=== PATIENT | female | born 2000 | race Caucasian/White ===

== ENCOUNTER 2022-10-21 00:41 | Day surgery (SDC) | payer SELFPAY ==
--- NOTE | 2022-10-14 13:13 | PC.NURSE ---
Report to the Outpatient Waiting Room, entrance under the green pavilion located off [facility], at time _0630_ on date _10/21/22__. Planned Procedure Time: _0830_. Time changes happen often and if your time is changed the preop area will call you the afternoon before. - You and your visitor will be asked to self-screen and do not enter if you have any COVID symptoms. - A mask is optional within the hospital at this time. Patients may have clear liquids (water, carbonated beverages, clear teas, apple juice) until 3 hours prior to surgery with a maximum of 20 ounces. - No food from midnight until time of surgery - Infants may have breast milk until 4 hours before surgery, infant formula 6 hours prior to surgery. - Children will be allowed to drink immediately following surgery. If applicable, please bring a bottle or sippy cup to assist with drinking. Juice, water, soda, and popsicles are readily available. For infants on formula, please bring formula the day of surgery. Pacifiers are allowed. Take the following medications with a SIP of water the morning of surgery: ____none__ DO NOT STOP ANY OF YOUR OTHER PRESCRIPTION MEDICATIONS PRIOR TO SURGERY ?EXCEPT THE FOLLOWING Medications to discontinue per physician __vitamins or supplement 3 days prior__ Date to take last dose Please no make-up, nail zimbabwean, hairspray, perfume, deodorant, or body powder the day of surgery. No jewelry (including any body piercings) or valuables the day of surgery, leave them at home. Please take a shower or bath the night before, or the morning of, surgery with an antibacterial soap. Wear comfortable, loose fitting clothing. Children are encouraged to wear pajamas. - Jewelry must be removed prior to entering the operating room. Rings and piercings that are not removed may be cut off. - The hospital will not accept responsibility for valuables. - Please leave all valuables, including medications, at home the day of surgery. If you are going home after surgery, a licensed oil transport driver must drive you home. - NO public transportation without another adult if you receive anesthesia. - We recommend that an adult stay with you for 24 hours following discharge. - We also recommend that you do not drive, make important decision, drink alcoholic beverages, or take any drugs that were not prescribed by your health care provider for at least 24 hours after your discharge time. For Pediatric surgeries, we recommend two adults accompany the child home. Follow any additional instructions given to you from your surgeon. If you or anyone in your household have experienced Covid symptoms in the past week, please notify your surgeon or the nurse liaison at the phone number below for possible testing. Telephone instructions given to _Patient__and asked if any additional questions and then verbalized understanding. Patient advised to call surgeon office or pre surgery nurse liaison [phone] if any additional questions.
[2022-10-14 13:19] VITALS: BMI 20.5
--- NOTE | 2022-10-20 19:04 | PM.IMHP ---
H&P: HPI History of Present Illness Date/Time: 10/20/22 19:04 Chief Complaint: IUD removal Narrative: Estela is a 22yo G0, who presents for Mirena IUD removal. It has been in place since 09/2020 but did not follow up for IUD string check. She has been having cramping and spotting on and off. She would like to be switched to the patch. She presented in office for removal but the strings were not visualized. She did not want to attempt in office removal as the insertion was very painful. Review of Systems Constitutional: Constitutional: Denies chills, Denies fever(s) and Denies headache(s) Eyes: Eyes: Denies change in vision ENT: Denies dizziness and Denies headache(s) Cardiovascular: Cardiovascular: Denies chest pain and Denies dyspnea Respiratory: Respiratory: Denies cough and Denies dyspnea Gastrointestinal: Gastrointestinal: Denies abdominal pain and Denies change in stool character Genitourinary: Genitourinary: Denies abnormal menses, Denies pelvic pain, Denies vaginal discharge, Denies vaginal odor and Denies vaginal pruritus Neurologic: Denies dizziness and Denies headache(s) Psychiatric: Psychiatric: Denies anxiety and Denies depression PMF Past Medical History Medical History (Updated 09/05/22 @ 10:20 by Xi Juarez MD) Acute anxiety Anorexia Depression Encounter for insertion of mirena IUD insertion - 10/04/2020 Epileptic seizures Ganglion cyst of dorsum of right wrist removed 2011 Surgical History Surgical History H/O endoscopy Family History Family History (Updated 09/04/22 @ 11:59 by Verenice Seals MA) Grandparent Heart disease Hypertension Social History Social History (Updated 09/05/22 @ 09:54 by Verenice Seals MA) Smoking status: Current every day smoker Tobacco type: e-cigarettes/vaping Alcohol intake: never Substance use: never Substance use type: does not use Living arrangements: alone Occupation/Education: occupation Gender identity (if verbalized by the patient): Other Sexual Orientation (if Verbalized by the Patient): Bisexual Spiritual care concerns: No Meds Home Medications and Allergies Home Medications Medication Instructions Recorded Confirmed Type escitalopram oxalate 5 mg tablet 15 mg PO DAILY 09/05/22 10/14/22 History (Lexapro) Allergies Allergy/AdvReac Type Severity Reaction Status Date / Time No Known Allergies Allergy Verified 10/14/22 13:03 Exam Const: General: cooperative, healthy appearing, comfortable and no acute distress Orientation/consciousness: patient oriented x3 Resp: Effort & Inspection: normal respiratory effort Cardio: Rate: regular rate GI: Inspection: normal to inspection GI Palp: No abdominal tenderness and Yes Soft to palpation : Other: deferred to OR Skin: General skin exam: normal color Neuro: General: patient oriented x3 Extrem: General: normal to inspection Psych: Appearance: grossly normal Affect: normal affect Attitude: cooperative Assessment and Plan Assessment and plan (1) IUD threads lost: Qualifiers: Encounter type: initial encounter Qualified Code(s): T83.32XA - Displacement of intrauterine contraceptive device, initial encounter Code(s): T83.32XA - Displacement of intrauterine contraceptive device, initial encounter Status: Acute Assessment and Plan: - CRIB ATTENDANT US confirmed the IUD is in the correct location - pt wants to proceed with HSC IUD removal in OR under sedation since the IUD placement was very painful - Risks and benefits explained in detail
--- NOTE | 2022-10-21 07:06 | WPDHPUPDATE1 ---
History and Physical Update Update Date/Time: 10/21/22 07:06 History and Physical has been reviewed, including an updated exam of the patient. There are NO changes in the patient's condition. Risks, benefits, and alternatives have been discussed and questions answered. Patient agrees to proceed with hysteroscopic IUD removal.
--- NOTE | 2022-10-21 07:07 | P.PNAN_ITS ---
Anes - Initial Pre Proc Eval Procedure: Operation Date: 10/21/22 09:00 Proposed Procedures p Hysteroscopy, with Intrauterine Device Removal - Xi Juarez MD Date/Time: 10/21/22 07:07 Surgeon: Xi Juarez MD Pre Op Diagnosis: retained iud Patient Data Age: 22 Gender: F Height: 1.63 m Weight: 54.43 kg Allergies Allergy/AdvReac Type Severity Reaction Status Date / Time No Known Allergies Allergy Verified 10/21/22 06:33 Home Medications Medication Instructions Recorded Confirmed Type escitalopram oxalate 5 mg tablet 15 mg PO DAILY 09/05/22 10/14/22 History (Lexapro) Patient hx anesthesia problems: none Family hx anesthesia problems: none Results Review: All pre-operative results and documents have been reviewed as part of the pre- operative evaluation. [facility] Past Medical History Medical History Acute anxiety Anorexia Depression Encounter for insertion of mirena IUD insertion - 10/04/2020 Epileptic seizures Ganglion cyst of dorsum of right wrist removed 2011 Surgical History Surgical History H/O endoscopy Family History Family History Grandparent Heart disease Hypertension Social History Social History Smoking status: Current every day smoker Tobacco type: e-cigarettes/vaping Alcohol intake: never Substance use: never Substance use type: does not use Living arrangements: alone Occupation/Education: occupation Gender identity (if verbalized by the patient): Other Sexual Orientation (if Verbalized by the Patient): Bisexual Spiritual care concerns: No Anes - Eval Final PreProcedure Day of Procedure 10/21/22 07:07 Patient weight: normal Heart: regular rate and rhythm Lungs: decreased breath sounds Airway: Mallampati scale class II Neurological: alert and oriented Last oral intake: >/= 8 hours ASA classification: III Emergent: no Anesthetic plan: proceed Anesthesia type and monitoring: general GIVS and standard monitoring Results Review: All pre-operative results and documents have been reviewed as part of the pre- operative evaluation. Informed Consent: The patient's anesthetic plan and its attendant risks and benefits were dis cussed with the patient/family/POA. Questions were solicited and answers provided to the satisfaction of the patient/family/POA.
[2022-10-21] MEDS: ACETAMINOPHEN 500 MG TABLET 1000 MG PO (07:10)
[2022-10-21] MEDS: LACTATED RINGERS 1,000 ML 30 ML IV CONT (07:18)
[2022-10-21 07:19] VITALS: BP 85/53; PULSE 78; RESP 16; TEMP 36.6; O2SAT 100
[2022-10-21 09:32] VITALS: BP 95/41; PULSE 70; RESP 16; O2SAT 100
--- NOTE | 2022-10-21 09:33 | W.PM.PROC2 ---
Procedure Note - Detailed Date of Procedure 10/21/22 Pre-op Diagnosis retained iud Post-op Diagnosis Same Procedure Performed Hysteroscopic IUD removal Surgeon Xi Juarez MD Anesthesia MAC Findings The IUD and strings were noted to be within the uterine cavity; IUD was not imbedded; removed without issue in total. Normal appearing endometrial cavity noted. Description of Procedure Estela was taken to the operating room where she was placed under sedation without complications. She was then prepped and draped in the usual sterile fashion in the dorsal lithotomy position with her legs in low Brandan stirrups. A time-out was performed and no perioperative antibiotics were indicated. A bivalve speculum was placed within the vagina where the cervix was easily identified. The anterior lip of the cervix was grasped with a single-tooth tenaculum. The cervix was then serially dilated to allow for the hysteroscope. The hysteroscope was advanced into the uterine cavity with the above findings noted. Using hysteroscopic alligator forceps the IUD was removed without complications. The IUD was noted to be removed in whole. The IUD was discarded (not sent to pathology). All instruments were removed from the vagina. Good hemostasis was noted. Sponge, lap, instrument, and needle counts were correct at the end of the procedure. Patient was awoken from anesthesia and taken to recovery with plans of same-day discharge home. Estimated Blood Loss 5 IV Fluids 30 ((fluid deficit)) Pathology None sent (IUD discarded) Complications No immediate complications Condition Stable Disposition Same day [facility] Billing Surgery - Charge Forward: Surgery Billing
[2022-10-21 10:00] VITALS: BP 98/56; PULSE 60; RESP 16; O2SAT 100
[2022-10-21 10:30] VITALS: BP 103/60; PULSE 65; RESP 18
[2022-10-21 10:45] VITALS: BP 100/57; PULSE 66; RESP 18
[2022-10-21] MEDS: oxyCODONE HCL (*CRX) 5 MG TAB IR PO (10:46)
== END 2022-10-21 10:52 | disposition home or self-care (01) ==
PROVIDERS: PCP Internal Medicine; Visit Provider Obstetrics & Gynecology
PROC: 0U5B8ZZ Destruction of Endometrium, Via Natural or Artificial Opening Endoscopic (ICD-10-PCS; CPT 58563; principal; 2022-10-21 09:00)
DX: T83.32XA Displacement of intrauterine contraceptive device, initial encounter (principal); Y84.8 Other medical procedures as the cause of abnormal reaction of the patient, or of later complication, without mention of misadventure at the time of the procedure; F41.9 Anxiety disorder, unspecified; F32.A Depression, unspecified; F17.290 Nicotine dependence, other tobacco product, uncomplicated
CPT/HCPCS: 58562; A9270; J2250; J2704; J3010; J7120